=== PATIENT | male | born 1985 | race Hispanic/Latino ===

== ENCOUNTER 2017-10-10 11:05 | Emergency (ER) | payer OTHER ==
[~2017-10-10] VITALS: Ht 177.8 cm; Wt 105.5 kg
--- NOTE | 2017-10-10 12:50 | REP ---
CT of the cervical spine: Axial images are acquired helical scanning and are reformatted in sagittal and coronal projections. The skull base, C1 and C2 are unremarkable. Vertebral body heights, interspacing alignment are normal. The prevertebral soft tissues are normal. The facets are normally aligned. Impression: There is no fracture or listhesis. Signed by Heath Hollins MD 10/10/2017 12:41 P
--- NOTE | 2017-10-10 12:57 | REP ---
Left shoulder two views: Mineralization joint spaces are normal. There is no fracture or dislocation. There is an apparent lucency in the humeral head. This is of uncertain significance and may merely be artifact from projection. However, CT might be considered for confirmation. Signed by Heath Hollins MD 10/10/2017 12:49 P
--- NOTE | 2017-10-10 12:59 | REP ---
CT of the brain without IV contrast: There is no subdural or epidural hematoma. There is no other intracranial hemorrhage. There is no edema, mass effect or midline shift. There is opacification of a few ethmoid sinus air cells on the right. The mastoid air cells are clear. Impression: Negative CT scan of the brain. There is opacification of the ethmoid air cells on the right. Signed by Heath Hollins MD 10/10/2017 12:50 P
[2017-10-10 13:12] VITALS: BP 174/116
[2017-10-10] MEDS ORDERED: ACETAMINOPHEN 325 MG TAB PO ONE (13:30)
--- NOTE | 2017-10-10 14:04 | REP ---
CT of the shoulder without IV contrast: Axial images are acquired helical scanning and formatted sagittal coronal projections. Studies correlate with the plain film study performed earlier today. There is no focal lytic or destructive lesion. There is nondescript lucency throughout the left humeral head extending to the epiphyseal plate plate compatible with an anatomic variant. Impression: No lytic lesion. Anatomic variant in mineralization of the humeral head. Signed by Heath Hollins MD 10/10/2017 01:56 P
[2017-10-10] MEDS ORDERED: IBUP80TA PO (14:18)
[2017-10-10] MEDS ORDERED: CYCL10TA PO (14:18)
== END 2017-10-10 14:24 | disposition home or self-care (01) ==
LOC: M ED 11:05
DX: S00.93XA Contusion of unspecified part of head, initial encounter (principal); S10.93XA Contusion of unspecified part of neck, initial encounter; S40.012A Contusion of left shoulder, initial encounter; M62.838 Other muscle spasm; I10 Essential (primary) hypertension; F17.200 Nicotine dependence, unspecified, uncomplicated

== ENCOUNTER 2018-10-17 13:07 | Emergency (ER) | payer OTHER ==
[~2018-10-17] VITALS: Ht 177.8 cm; Wt 104.5 kg
[~2018-10-17 13:07] MED LIST: CYCL10TA PO; IBUP80TA PO
[2018-10-17] MEDS ORDERED: ASPIRIN 81 MG CHEW TABLET PO ONE (13:45)
[2018-10-17] MEDS ORDERED: NS 1,000 ML IV ONE (13:45)
--- NOTE | 2018-10-17 14:10 | REP ---
Chest one-view HISTORY: Chest pain Comparison: None The lungs are clear. The heart is normal in size. The pulmonary vasculature is normal in appearance. Impression: No acute disease. Electronically Signed by Сергей Anand MD 10/17/2018 02:02 P
[2018-10-17 14:19] LABS: BASO % 0.3 % (0.0-1.0); EOS # 0.1 10^3/uL (0.0-0.50); EOS % 0.9 % (0.0-3.0); HEMATOCRIT 45.8 % (42.0-52.0); HEMOGLOBIN 15.3 g/dl (13.5-17.5); LYMPH # 1.3 10^3/uL (1.5-4.5); LYMPH % 12.6 % (24.0-44.0); MEAN CORPUSCULAR HEMOGLOBIN 30.1 pg (27.0-33.0); MEAN CORPUSCULAR HGB CONC 33.4 g/dl (32.0-36.5); MEAN CORPUSCULAR VOLUME 90.2 fl (80.0-96.0); MONO # 0.5 10^3/uL (0.0-0.8); MONO % 4.6 % (0.0-5.0); NEUTROPHILS # 8.4 10^3/uL (1.8-7.7); NEUTROPHILS % 81.2 % (36.0-66.0); PLATELET COUNT, AUTOMATED 278 10^3/uL (150-450); RED BLOOD COUNT 5.08 10^6/uL (4.30-6.10); WHITE BLOOD COUNT 10.4 10^3/uL (4.0-10.0)
[2018-10-17 14:28] LABS: INR 0.98
[2018-10-17 14:29] LABS: PARTIAL THROMBOPLASTIN TIME 28.9 SECONDS (25.4-37.6)
[2018-10-17 14:43] LABS: ALBUMIN 3.7 GM/DL (3.2-5.2); ALT/SGPT 26 U/L (12-78); BILIRUBIN,DIRECT < 0.1 MG/DL (0.0-0.2); BILIRUBIN,TOTAL 0.5 MG/DL (0.2-1.0); BLOOD UREA NITROGEN 16 MG/DL (7-18); CALCIUM LEVEL 8.6 MG/DL (8.5-10.1); CARBON DIOXIDE LEVEL 26 MEQ/L (21-32); CHLORIDE LEVEL 108 MEQ/L (98-107); CPK CREATINE PHOSPHOKINASE 243 U/L (39-308); CREATININE FOR GFR 1.52 MG/DL (0.70-1.30); GLOMERULAR FILTRATION RATE 56.2 (>60); GLUCOSE, FASTING 113 MG/DL (70-100); LIPASE 106 U/L (73-393); MB/CK RELATIVE INDEX 2.06 (< OR =4); POTASSIUM SERUM 3.8 MEQ/L (3.5-5.1); SODIUM LEVEL 142 MEQ/L (136-145); THYROID STIMULATING HORMONE 0.594 uIU/ML (0.358-3.740); TOTAL PROTEIN 7.1 GM/DL (6.4-8.2)
[2018-10-17] MEDS ORDERED: ISOVUE-370 76% 100ML VIAL (Q9967) As Ordered ONE (14:52)
[2018-10-17] MEDS ORDERED: CLOPIDOGREL 300 MG TAB (PLAVIX) PO STA (15:22)
[2018-10-17] MEDS ORDERED: HEPARIN SOD (PORCINE) 5000 UNITS/ML VIAL IV ONE (15:30)
--- NOTE | 2018-10-17 15:35 | REP ---
CT pulmonary angiogram: With IV contrast. History: Rule out pulmonary embolus. Comparison studies: No comparison study. Contrast dose: 75 cc's of Isovue [address] technique: Helical scanning is acquired and overlapping 1.5 mm and contiguous 3 mm axial images are reformatted. In addition, maximum intensity projection and multiplanar re-formation images are generated in sagittal and coronal imaging projections. CT pulmonary angiographic findings: There is good opacification of the pulmonary arterial tree. Maximum intensity projection images and axial images show no evidence of vessel cutoff or filling defect. There is no evidence to suggest pulmonary embolus. The thoracic aorta enhances homogeneously and it is normal in course and caliber. No aneurysm or dissection is seen. There is no evidence of pleural or pericardial effusion. No hilar or mediastinal mass or adenopathy is observed. The lung castañeda are clear. No infiltrate is seen. No bony destructive lesion. No adrenal abnormality is seen on either side. The visualized upper abdominal structures are unremarkable. Impression: No CT evidence of pulmonary embolus. Negative CT pulmonary angiogram. Electronically Signed by Jose Armando Carrero MD 10/17/2018 08:41 P
[2018-10-17] MEDS: METOPROLOL 5 MG/5 ML VIAL IV SCH ×3 (15:37→16:10)
[2018-10-17] MEDS ORDERED: CLOPIDOGREL 75 MG TAB PO STA (15:38)
[2018-10-17] MEDS ORDERED: HEPARIN DRIP 25,000 UNITS in APPROPRIATE DILUENT 1 EA IV SCH (15:45)
[2018-10-17] MEDS ORDERED: CARVedilol 3.125 MG TAB PO ONE (16:15)
[2018-10-17 16:21] VITALS: BP 162/109
[2018-10-17 17:17] VITALS: BP 161/105
[2018-10-17 17:18] LABS: MB/CK RELATIVE INDEX 5.45 (< OR =4); TROPONIN I 3.58 NG/ML (< 0.10)
--- NOTE | 2018-10-18 09:19 | ECGEPIP ---
Stationary ECG Study [facility] - ED Test Date: 2018-10-17 Pat Name: MERCY PAYTON Department: Room: - Gender: M Hassock Maker: ct : 1985 Requested By: Wilfrid He Order Number: [id number] Reading MD: Stacie Redding Measurements Intervals [place] Rate: 84 P: 47 SD: 191 QRS: -18 QRSD: 97 T: 139 QT: 358 QTc: 425 Interpretive Statements SINUS RHYTHM LEFT VENTRICULAR HYPERTROPHY AND ST-T CHANGE VS ISCHEMIA CLINICAL CORRELATION NO PRIOR FOR COMPARISON Electronically Signed On 10-18-2018 9:19:03 EST by Stacie Redding
== END 2018-10-17 17:24 | disposition short-term general hospital (02) ==
LOC: M ED 13:07
DX: I21.4 Non-ST elevation (NSTEMI) myocardial infarction (principal); R79.89 Other specified abnormal findings of blood chemistry; R00.2 Palpitations; I10 Essential (primary) hypertension; F17.200 Nicotine dependence, unspecified, uncomplicated
CPT/HCPCS: 36415; 71045; 71275; 80048; 80076; 82550; 82553; 83690; 84439; 84443; 85025; 85610; 85730; 93005; 93041; 94760; 96361; 96374; 96375; 99285; Q9967

== ENCOUNTER → 2022-06-27 | Outpatient (CLI) | payer OTHER ==
[~2022-06-27] MED LIST changes: +AMLO1TAB25 PO; +ATOR40TA75 PO; +CYCL-707 PO; -CYCL10TA PO; +ERGO500029 PO; +METF500T13 PO; +METO1TAB33 PO
== END ==
LOC: M LABSMTC 10:20
PROVIDERS: ATTEND Anesthesiology
DX: Z01.812 Encounter for preprocedural laboratory examination (principal); Z20.822 Contact with and (suspected) exposure to COVID-19

== ENCOUNTER 2022-06-29 09:02 | Day surgery (SDC) | payer OTHER ==
[~2022-06-29] VITALS: Ht 177.8 cm; Wt 100.6 kg
[~2022-06-29 09:02] MED LIST changes: +NS 1,000 ML IV ONE
[2022-06-29] MEDS ORDERED: fentaNYL 100 MCG/2 ML INJECTION As Ordered ONE (10:02)
[2022-06-29] MEDS ORDERED: propofoL 200 MG/20 ML VIAL As Ordered ONE (10:42)
[2022-06-29] MEDS ORDERED: LIDOCAINE 2% 100MG/5ML SDV (FOR ANES.) As Ordered ONE (10:43)
[2022-06-29 11:17] VITALS: BP 138/72
== END 2022-06-29 11:36 | disposition home or self-care (01) ==
LOC: M OPP 09:02
PROVIDERS: ATTEND Surgery
DX: K57.30 Diverticulosis of large intestine without perforation or abscess without bleeding (principal); K64.0 First degree hemorrhoids; K29.70 Gastritis, unspecified, without bleeding; I10 Essential (primary) hypertension; E11.9 Type 2 diabetes mellitus without complications; G47.30 Sleep apnea, unspecified; Z99.89 Dependence on other enabling machines and devices; F17.200 Nicotine dependence, unspecified, uncomplicated; Z79.02 Long term (current) use of antithrombotics/antiplatelets; Z79.84 Long term (current) use of oral hypoglycemic drugs; Z79.899 Other long term (current) drug therapy
CPT/HCPCS: 43239; 45378; 88305; J3010

== ENCOUNTER 2023-09-01 10:31 | Emergency (ER) | payer OTHER ==
[~2023-09-01] VITALS: Ht 177.8 cm; Wt 99.1 kg
[~2023-09-01 10:31] MED LIST changes: -NS 1,000 ML IV ONE
[2023-09-01] MEDS ORDERED: LEVOTAB10 (11:22)
[2023-09-01] MEDS ORDERED: KETOROLAC 30 MG/ML 1ML VIAL IM ONE (13:45)
[2023-09-01] MEDS ORDERED: diazePAM 5MG TABLET PO ONE (13:45)
[2023-09-01] MEDS ORDERED: predniSONE 20 MG TAB PO ONE (13:45)
[2023-09-01] MEDS ORDERED: LIDOCAINE 5% (LIDODERM) PATCH TD ONE (13:45)
[2023-09-01] MEDS ORDERED: METH-1164 PO (15:00)
[2023-09-01] MEDS ORDERED: IBUP-1022 PO (15:00)
[2023-09-01 15:06] VITALS: BP 176/98; TEMP 98.7; O2SAT 96
== END 2023-09-01 15:29 | disposition home or self-care (01) ==
LOC: M ED 10:31
DX: M54.50 Low back pain, unspecified (principal); X50.0XXA Overexertion from strenuous movement or load, initial encounter; I10 Essential (primary) hypertension; F17.200 Nicotine dependence, unspecified, uncomplicated; Z79.02 Long term (current) use of antithrombotics/antiplatelets; Z79.4 Long term (current) use of insulin; Z79.899 Other long term (current) drug therapy
CPT/HCPCS: 72110; 96372; 99283; J1885; J7512

== ENCOUNTER → 2023-09-06 | Outpatient (CLI) | payer OTHER ==
[~2023-09-06] MED LIST changes: +IBUP-1022 PO; +LEVOTAB10; +METH-1164 PO
[2023-09-06 18:15] LABS: BLOOD UREA NITROGEN 16 MG/DL (9-23); CALCIUM LEVEL 9.3 MG/DL (8.5-10.1); CARBON DIOXIDE LEVEL 27 MMOL/L (20-31); CHLORIDE LEVEL 107 MMOL/L (98-107); CREATININE FOR GFR 1.14 MG/DL (0.70-1.30); GLOMERULAR FILTRATION RATE > 60.0 (>60); GLUCOSE, FASTING 115 MG/DL (60-100); POTASSIUM SERUM 3.8 MMOL/L (3.5-5.1); SODIUM LEVEL 141 MMOL/L (136-145)
[2023-09-06 18:22] LABS: APPEARANCE, URINE CLEAR (CLEAR); BACTERIA, URINE AUTO NEGATIVE (NEGATIVE); BILIRUBIN, URINE AUTO NEGATIVE (NEGATIVE); BLOOD, URINE BLOOD 1+ (NEGATIVE); COLOR, URINE YELLOW (YELLOW); GLUCOSE, URINE (UA) AUTO NEGATIVE (NEGATIVE); KETONE, URINE AUTO NEGATIVE (NEGATIVE); LEUKOCYTE ESTERASE, URINE AUTO NEGATIVE (NEGATIVE); MUCUS, URINE SMALL (NEGATIVE); NITRITE, URINE AUTO NEGATIVE (NEGATIVE); PROTEIN, URINE AUTO 2+ mg/dL (NEGATIVE); RBC, URINE AUTO 1 /HPF (0-3); SPECIFIC GRAVITY URINE AUTO 1.015 (1.002-1.035); SQUAMOUS EPITHELIAL CELL UR AU 0 /HPF (0-6); UROBILINOGEN, URINE AUTO 0.2 mg/dL (0.0-2.0); WBC, URINE AUTO 1 /HPF (0-3)
== END ==
LOC: M PLALAB 15:06
PROVIDERS: ATTEND Urology
DX: R31.29 Other microscopic hematuria (principal)

== ENCOUNTER → 2023-09-13 | Outpatient (CLI) | payer OTHER ==
[~2023-09-13] MED LIST changes: +ISOVUE-370 76% 100ML VIAL As Ordered ONE
== END ==
LOC: M RAD 14:04
PROVIDERS: ATTEND Urology
DX: R31.29 Other microscopic hematuria (principal)
CPT/HCPCS: 74178; Q9967

== ENCOUNTER → 2023-10-18 | Outpatient (REF) | payer OTHER ==
[~2023-10-18] MED LIST changes: -ISOVUE-370 76% 100ML VIAL As Ordered ONE
[2023-10-19 12:55] LABS: AMORPHOUS SEDIMENT SMALL (NEGATIVE); APPEARANCE, URINE CLOUDY (CLEAR); BACTERIA, URINE AUTO NEGATIVE (NEGATIVE); BILIRUBIN, URINE AUTO NEGATIVE (NEGATIVE); BLOOD, URINE BLOOD NEGATIVE (NEGATIVE); CALCIUM OXALATE CRYSTALS LARGE; COLOR, URINE AMBER (YELLOW); GLUCOSE, URINE (UA) AUTO 1+ mg/dL (NEGATIVE); KETONE, URINE AUTO NEGATIVE (NEGATIVE); LEUKOCYTE ESTERASE, URINE AUTO NEGATIVE (NEGATIVE); MUCUS, URINE SMALL (NEGATIVE); NITRITE, URINE AUTO NEGATIVE (NEGATIVE); PROTEIN, URINE AUTO 3+ mg/dL (NEGATIVE); RBC, URINE AUTO 2 /HPF (0-3); SPECIFIC GRAVITY URINE AUTO 1.025 (1.002-1.035); SQUAMOUS EPITHELIAL CELL UR AU 0 /HPF (0-6); WBC, URINE AUTO 11 /HPF (0-3)
== END ==
LOC: M SMT 10:03
PROVIDERS: ATTEND Urology
DX: R31.29 Other microscopic hematuria (principal)

== ENCOUNTER → 2024-08-13 | Outpatient (CLI) | payer OTHER | LOC: M SOG 07:55 | PROVIDERS: ATTEND Physician Assistant | DX: M25.512 Pain in left shoulder (principal) ==